=== PATIENT | female | born 1995 | race Caucasian/White ===

== ENCOUNTER 2017-09-07 23:18 | Emergency (ER) | payer BC ==
[~2017-09-07] VITALS: Ht 170.2 cm; Wt 92.9 kg
[2017-09-07 23:24] VITALS: TEMP 36.8; Ht 170.2 cm; Wt 92.9 kg
[2017-09-08] MEDS ORDERED: BCPILLS PO (00:58)
[2017-09-08] MEDS ORDERED: ONDANSETRON HOME PACK 4MG OD TAB PO ONE (01:00)
[2017-09-08 01:05] VITALS: BP 135/87; PULSE 87; O2SAT 98
--- NOTE | 2017-09-08 05:24 | EMERGENCY ROOM VISIT NOTE ---
ED Visit Note First contact with patient: 23:35 CHIEF COMPLAINT: Head injury HISTORY OF PRESENT ILLNESS: This 22-year-old female patient presented to the emergency department after receiving a head injury about 2 hours ago. The patient struck herself on the door of her freezer. The patient did not lose consciousness, but felt very dizzy and had vomiting. She struck the right side of her head, but is complaining of left-sided head pain. She states that she had difficulty speaking after the injury. She does have a history of concussion in the past, and had extensive follow-up for full months with neuro physiology and other specialists. The patient does have a mild headache that she rates a 4/10. No numbness or paresthesias. No other injuries. She has not taken anything for the discomfort. REVIEW OF SYSTEMS: A review of systems was performed with positives and pertinent negatives listed in the history of present illness. All other systems were reviewed and are negative. ALLERGIES: No known medication allergies MEDICATIONS: No chronic medication PMH: History of concussions SOCIAL HISTORY: Student and lives locally PHYSICAL EXAM: Vital Signs: Reviewed Nurse's notes, vital signs stable. GENERAL : Female, in no acute distress, well-developed, well-nourished. NEURO: The patient is alert, oriented to person place and time, and coherent. Normal mini mental status exam. Negative Romberg and pronator drift. Cerebellar function intact. HEAD: Normocephalic atraumatic. EYES: Pupils are equal round and reactive to light and accommodation. EOMs are full and optic discs and fundi are normal. There is no swelling or discoloration of the tissue surrounding the eyes. EARS: External auditory canals clear without blood. NOSE: Patent without tenderness. No septal hematoma. FACE: No facial bone tenderness. NECK: Supple. There is no significant cervical spine tenderness. The patient does not have tenderness with movement of the neck. Preliminary Findings Only See Final Report For Complete Findings CT HEAD: No evidence of acute intracranial abnormality or skull fracture Partially visualized paranasal sinuses and mastoid air cells are clear ED COURSE: Physical exam and history were performed. Nursing notes and EMR were reviewed. The patient appears to have a history of concussions in the past. She evidently struck her head tonight and is having pain with nausea and difficulty speaking. On evaluation the patient does appear well without obvious neurologic deficit. I discussed options of care with the patient and the patient's mother. We elected to perform a CT scan. CT scan does not show evidence of acute fracture or bleed. Overall the patient appears well for discharge home. I will give her a home pack of Zofran for supportive measures. The patient is to follow with [facility] in the next few days for recheck. She was otherwise invited back to the ER with any new, worsening, or concerning symptoms. Current/Historical Medications Scheduled Control Pills ( Control Pills), 1 TAB PO DAILY Allergies Coded Allergies: Nickel (Verified Allergy, Unknown, RASH, 09/08/17) Vital Signs Date Time Temp Pulse Resp B/P (MAP) Pulse Ox O2 Delivery O2 Flow Rate FiO2 09/08/17 01:05 87 18 135/87 98 Room Air 09/07/17 23:34 18 09/07/17 23:24 36.8 91 18 98 Room Air Medications Administered Medications (Trade) Dose Ordered Sig/Zackary Route Start Time Stop Time Status Last Admin Dose Admin Ondansetron HCl (ZOFRAN ODT 4MG Home Pack) 1 homepack UD ONCE PO 09/08/17 01:00 09/08/17 01:01 DC 09/08/17 01:01 1 HOMEPACK Departure Information Impression Primary Impression: Closed head injury Dispostion Home / Self-Care Condition GOOD Forms HOME CARE DOCUMENTATION FORM, School Instructions, Additional Instructions: Patient seen and evaluated today in the emergency department for medica care. Return to class on 09/09/2017. Please excuse. Work Instructions, Additional Instructions: Patient was seen and evaluated today in the emergency department fo medical care. Return to work on 09/09/2017. Please excuse IMPORTANT VISIT INFORMATION Patient Instructions My [facility] Additional Instructions You were seen and evaluated today on an emergency basis only. This is not a substitute for, or an effort to provide, complete comprehensive medical care. It is not possible to recognize and treat all injuries or illnesses in a single emergency department visit. For this reason it is recommended that you followup with [facility] this week for ongoing care and evaluation. For baseline pain relief you may alternate ibuprofen and acetaminophen every 4 hours for pain control. Take 600 mg ibuprofen (Advil) and then 4 hours later take 1000 mg acetaminophen (Tylenol). Do not take more than 3000 mg acetaminophen in a single day. Zofran 1 tablet every 6 hrs as needed for nausea. You are welcome to return to the emergency department anytime with new, worsening, or concerning symptoms. Work Instructions Additional Work Instructions: Patient was seen and evaluated today in the emergency department for medical care. Return to work on 09/09/2017. Please excuse School Instructions Additional School Instructions: Patient seen and evaluated today in the emergency department for medical care. Return to class on 09/09/2017. Please excuse.
--- NOTE | 2017-09-08 06:36 | DIAGNOSTIC IMAGING REPORT ---
HEAD WITHOUT CONTRAST (CT) CT DOSE: 537.48 mGy.cm HISTORY: Trauma Head injury TECHNIQUE: Multiaxial CT images of the head were performed without the use of intravenous contrast. A dose lowering technique was utilized adhering to the principles of ALARA. Comparison: None. Findings: The paranasal sinuses and mastoid air cells are clear. The calvarium and skull base are intact. The ventricles and sulci are within normal limits. There is no mass, hematoma, midline shift, or acute infarct. Impression: No acute intracranial abnormality. The above report was generated using voice recognition software. It may contain grammatical, syntax or spelling errors. Electronically signed by: Ayaan Hassan M.D. 09/08/2017 6:35 AM Dictated Date/Time: 09/08/2017 6:34 AM
== END 2017-09-08 01:06 | disposition home or self-care (01) ==
LOC: C.EDB 23:20
DX: S09.90XA Unspecified injury of head, initial encounter (principal); W22.09XA Striking against other stationary object, initial encounter; Z79.3 Long term (current) use of hormonal contraceptives